=== PATIENT | female | born 1985 | race Caucasian/White ===

== ENCOUNTER → 2019-07-03 | Outpatient (CLI) | payer OTHER | LOC: COL.RAD 14:03 | DX: M25.521 Pain in right elbow (principal); R25.1 Tremor, unspecified; R53.1 Weakness ==

== ENCOUNTER → 2019-12-16 | Outpatient (CLI) | payer OTHER ==
[2019-12-16 12:39] VITALS: BP 130/86; PULSE 85; TEMP 98.4
== END ==
LOC: COL.ER 12:20
DX: Z48.02 Encounter for removal of sutures (principal)